=== PATIENT | female | born 1955 | race Caucasian/White ===

== ENCOUNTER → 2022-08-06 | Outpatient (CLI) | payer MEDICARE, BC, SELFPAY ==
--- NOTE | 2022-08-06 14:34 | RAD_ITS ---
INDICATION: INFLAMMATORY POLYARTHROPATHY EXAMINATION/TECHNIQUE: X-RAY - XR Pelvis 1 or 2 Views COMPARISON: None. FINDINGS: PELVIC BONES: No displaced fracture, destructive or sclerotic lesions. Note that overlapping bowel shadows may however obscure fine detail. Sacroiliac joints are unremarkable. No widening of the pubic symphysis. HIPS: Mild degenerative changes of the bilateral hips. No displaced fracture seen in this frontal view. SOFT TISSUES: No soft tissue swelling or gas. RAD/Pelvis 1 or 2 Views IMPRESSION: No evidence of displaced pelvic or hip fracture. 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 Electronically Signed: Guy Crow MD at 18:11 EDT ,
[2022-08-06 18:13] LABS: Absolute Lymphocyte Count 2.94 X10^3/uL (0.83-4.51); Absolute Neutrophil Count 4.9 X10^3/uL (2.0-7.7); Basophil# 0.08 X10^3/uL; Basophil% 0.9 % (0-1); Eosinophil# 0.15 X10^3/uL; Eosinophils% 1.8 % (0-5); Hematocrit 39.3 % (37-47); Hemoglobin 13.5 g/dL (12.0-15.0); Lymphocyte # 2.94 X10^3/ul (0.83-4.51); Lymphocyte % 34.4 % (19-41); Mean Corp Hgb Conc 34.4 g/dL (32-36); Mean Corpuscular Hgb 32.1 pg (27.0-32.0); Mean Corpuscular Volume 93.6 fL (81-99); Monocyte# 0.42 X10^3/uL; Monocyte% 4.9 % (0-10); NRBC Flagged by Analyzer 0 % (0-5); Neutrophil # 4.91 X10^3/uL (2.7-7.7); Neutrophil % 57.5 % (47-70); Platelet Count 222 K/mm3 (150-450); RBC Distribution Width CV 12.3 % (11.6-14.6); White Blood Count 8.5 K/mm3 (4.4-11.0)
[2022-08-06 18:27] LABS: ALB/GLOB Ratio 0.9 RATIO (0.9-2.4); AST(SGOT) 31 U/L (15-37); Alanine Aminotransfer ALT/SGPT 40 U/L (13-56); Albumin, Serum 3.9 g/dL (3.2-5.0); Alkaline Phosphatase 98 U/L (45-117); Anion Gap 7 (5-15); BUN 11 mg/dL (7-18); BUN/Creat Ratio 14.1 RATIO (10-20); Chloride 103 mmol/L (98-107); Creatinine, Serum 0.78 mg/dL (0.55-1.02); EST Glomerular Filtration Rate 79 mL/min (>60); Est Glom Filt Rate - Afr Amer 95 mL/min (>60); Globulin 4.4 g/dL (2.2-4.2); Glucose 94 mg/dL (74-106); Potassium 3.5 mmol/L (3.5-5.1); Protein, Total 8.3 g/dL (6.4-8.2); Rheumatoid Factor < 10.0 IU/mL (<15); Sodium Level 139 mmol/L (136-145)
[2022-08-06 18:28] LABS: Erythrocyte Sedimentation Rate 30 mm/hr (0-30)
[2022-08-07 08:38] LABS: Hepatitis B Surface Antigen Non-Reactive (Nonreactive); Hepatitis C Antibody Non-Reactive (Nonreactive)
[2022-08-08 14:38] LABS: ANTINUCLEAR ANTIBODIES DIRECT Positive (Negative)
[2022-08-10 15:41] LABS: CCP IgG Antibodies 8 units (0-19)
== END | disposition home or self-care (01) ==
PROVIDERS: PCP Internal Medicine; Referring Provider Internal Medicine Rheumatology; Visit Provider Internal Medicine Rheumatology
DX: M06.4 Inflammatory polyarthropathy (principal); M47.892 Other spondylosis, cervical region; R51.9 Headache, unspecified
CPT/HCPCS: 36415; 72170; 80053; 85025; 85652; 86038; 86140; 86200; 86431; 86803; 87340

== ENCOUNTER → 2022-09-05 | Outpatient (CLI) | payer MEDICARE, BC, SELFPAY ==
--- NOTE | 2022-09-05 16:22 | NEURO ---
NCS and/or EMG Patient Report Ordering Doctor: Katie Boss DATE OF SERVICE: 09/05/22 Hodan presents for electrodiagnostic testing of the left upper limb. She reports numbness and tingling in the left hand, primarily the first through third digit. Electrodiagnostic findings: Left median motor nerve demonstrates prolonged distal latency with reduced amplitude and reduced conduction velocity. Normal left ulnar motor response. Normal left ulnar F-wave. Absent left median F wave. Absent median sensory response at the wrist or palm. Normal left radial sensory response. Absent left ulnar sensory response. On needle EMG, all muscles tested showed no evidence of denervation with normal motor unit action potentials. Electrodiagnostic impression: This is an abnormal study in the left upper limb. 1. Electrodiagnostic findings suggestive of left-sided median mononeuropathy. This is consistent with a severe left carpal tunnel syndrome. 2. 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 3. No electrodiagnostic evidence is noted for cubital tunnel syndrome. 4. No electrodiagnostic evidence is noted for cervical radiculopathy.
== END | disposition home or self-care (01) ==
PROVIDERS: PCP Registered Nurse; Referring Provider Internal Medicine Rheumatology; Visit Provider Internal Medicine Rheumatology
DX: M47.892 Other spondylosis, cervical region (principal)

== ENCOUNTER → 2023-03-12 | Outpatient (CLI) | payer MEDICARE, BC, SELFPAY ==
[2023-03-12 17:57] LABS: Absolute Lymphocyte Count 2.61 X10^3/uL (0.83-4.51); Absolute Neutrophil Count 4.4 X10^3/uL (2.0-7.7); Basophil# 0.07 X10^3/uL; Basophil% 0.9 % (0-1); Eosinophil# 0.13 X10^3/uL; Eosinophils% 1.7 % (0-5); Erythrocyte Sedimentation Rate 19 mm/hr (0-30); Hematocrit 39.6 % (37-47); Hemoglobin 13.8 g/dL (12.0-15.0); Lymphocyte # 2.61 X10^3/ul (0.83-4.51); Lymphocyte % 34.3 % (19-41); Mean Corp Hgb Conc 34.8 g/dL (32-36); Mean Corpuscular Hgb 32.5 pg (27.0-32.0); Mean Corpuscular Volume 93.2 fL (81-99); Mean Platelet Vol. 11.3 fl (6.2-12.0); Monocyte# 0.37 X10^3/uL; Monocyte% 4.9 % (0-10); NRBC Flagged by Analyzer 0 % (0-5); Neutrophil # 4.42 X10^3/uL (2.7-7.7); Neutrophil % 57.9 % (47-70); Platelet Count 239 K/mm3 (150-450); RBC Distribution Width CV 12.1 % (11.6-14.6); RBC Distribution Width SD 41.8 fl (35.1-43.9); Red Blood Count 4.25 M/mm3 (4.2-5.4); White Blood Count 7.6 K/mm3 (4.4-11.0)
[2023-03-12 18:30] LABS: AST(SGOT) 30 U/L (15-37); Alanine Aminotransfer ALT/SGPT 37 U/L (13-56); Albumin, Serum 4.2 g/dL (3.2-5.0); Alkaline Phosphatase 105 U/L (45-117); Anion Gap 8 (5-15); BUN 13 mg/dL (7-18); BUN/Creat Ratio 14.4 RATIO (10-20); Calcium,Total 9.8 mg/dL (8.5-10.1); Chloride 103 mmol/L (98-107); EST Glomerular Filtration Rate 66 mL/min (>60); Est Glom Filt Rate - Afr Amer 80 mL/min (>60); Globulin 4.4 g/dL (2.2-4.2); Glucose 100 mg/dL (74-106); Potassium 3.6 mmol/L (3.5-5.1); Protein, Total 8.6 g/dL (6.4-8.2); Rheumatoid Factor < 10.0 IU/mL (<15); Sodium Level 137 mmol/L (136-145)
[2023-03-12 18:50] LABS: Hepatitis B Surface Antibody Non-Reactive; Hepatitis B Surface Antigen Non-Reactive (Nonreactive); Hepatitis C Antibody Non-Reactive (Nonreactive)
[2023-03-14 11:09] LABS: CCP IgG Antibodies 6 units (0-19)
[2023-03-14 13:07] LABS: ANTINUCLEAR ANTIBODIES DIRECT Positive (Negative)
== END | disposition home or self-care (01) ==
LOC: MTLAB 14:36
PROVIDERS: PCP Registered Nurse; Referring Provider Internal Medicine Rheumatology; Visit Provider Internal Medicine Rheumatology
DX: M06.4 Inflammatory polyarthropathy (principal); M47.892 Other spondylosis, cervical region; R51.9 Headache, unspecified
CPT/HCPCS: 36415; 80053; 85025; 85652; 86038; 86140; 86200; 86431; 86706; 86803; 87340

== ENCOUNTER 2023-05-21 06:03 | Day surgery (SDC) | payer MEDICARE, BC, SELFPAY ==
[2023-05-21 06:36] VITALS: BP 151/85; PULSE 74; RESP 16; TEMP 36.6; O2SAT 97; BMI 37.0
[2023-05-21] MEDS: Lactated Ringers 1,000 ML 15 ML IV (06:45)
--- NOTE | 2023-05-21 07:17 | HP.PCM_ITS ---
History and Physical Date of Admission: 05/21/23 [facility] [address] [place] [address] OFFICE VISIT Date of Service: 03/18/23 MR#: [id number] Acct: [id number] Name: CLEOPATRA RHODES Rep #: [id number] : 1955 Provider: Dr. Kirt Sanchez DO Age/Sex: 67/F Location: [facility] Status: Signed Intake Vital Signs 03/18/2309:34 Height 5 ft Weight: 191 lb 6 oz BMI 37.3 Intake Visit Reasons: LEFT HAND Is patient in pain?: Yes Pain scale (1-10): 7 Allergies No Known Allergies Allergy (Unverified 03/18/23 09:34) Medications NK 03/18/23 [History Confirmed 03/18/23] PFSH Surgical History (Updated 03/18/23 @ 09:35 by Mandy Farah) H/O: hysterectomy History of carpal tunnel release Hx of LASIK Social History (Updated 03/18/23 @ 09:35 by Mandy Farah) household members: family Smoking Status: Never smoker alcohol intake: current alcohol intake frequency: holidays/special occasions only HPI LEFT HAND Details: Parts of this documentation were recorded by a scribe, this documentation accurately reflects the service provided and the decisions made by me, Dr. Kirt Sanchez, 03/18/23 0810. CLEOPATRA RHODES is a 67 year old F here today new patient for left hand pain. Patient notes that she has had left hand pain for a few years with it worsening. She states that she has numbness into her thumb, index and middle finger. She notes that she is unable to feel items. Patient is dropping items more frequently. Patient notes that she had an EMG in 2021 which is here for review. Patient denies any injections or physical therapy. She has wrist bracing which she wears some nights which helps temporarily. She is right hand dominant. Patient denies any pain medications. Ortho Exam General General: Yes no acute distress Neurologic: Yes alert and Yes oriented x3 Psychologic: Yes reasonable and appropriate Right Wrist/Hand Skin/Wound: No Swelling and No Ecchymosis Left Wrist/Hand Skin/Wound: Yes CDI, No Swelling, No Ecchymosis, Yes capillary refill normal and No erythema Left Wrist: Yes Durken's Test, Yes Tinel's, Yes Phalen's and Yes Thenar Atrophy; No Hypothenar Atrophy WRIST: numbness into thumb, index and middle finger. tingling into ring finger. mild thenar wasting, 5/5 finger abduction, goos cap refill, full supination and pronation, 80 flexion and 50 extension Head: Normocephalic Atraumatic Chest: symmetrical rise, non-labored breathing, no audible wheeze Abdomen: no guarding, non-rigid Supplemental Info 09/05/2022 EMG left upper extremity:1.? Electrodiagnostic findings suggestive of left-sided median mononeuropathy.? This is consistent with a severe left carpal tunnel syndrome. 2.? 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 3.? No electrodiagnostic evidence is noted for cubital tunnel syndrome. 4.? No electrodiagnostic evidence is noted for cervical radiculopathy. Coding Level of Care Code Off vis,new,level 3 Diagnoses Carpal tunnel syndrome, left G56.02 Assessment and Plan Assessment and Plan (1) Carpal tunnel syndrome, left: Plan Educated the patient about the anatomy of the wrist and hand. Spoke with her about the benefits of a carpal tunnel release due to having severe carpal tunnel syndrome. Explained she might have increased sensativity following the surgery. She has a 1/2 pound lifting restriction for the first 2 weeks post op, and then may increase her lifting to 5 pounds for a week. Spoke with her about the surgery procedure. She should not take NSAIDs 7 days ahead of surgery. Reviewed the pre-operative plans with the patient. Risks and benefits of the procedure were fully explained, including but not limited to infection, neurovascular injury, continued pain, arthritis, stiffness, need for further surgery, re- injury, DVT, PE, general risks of anesthesia, and loss of limb or life, incisional hypersensitivity and pillar pain. The patient understands all the risks and does wish to proceed with written consent. Follow up for 2 week post op appointment or sooner if pain, swelling, numbness or associated symptoms, or concerns develop. All questions answered. Patient in agreement of plan. 03/18/23 1038 <Electronically signed by Kirt Sanchez DO> Date Kirt Robledoigndanyell Signature: Date (if applicable) CC: ~ I have examined the patient and the H&P has been reviewed. There are no clinical changes since date of exam.
[2023-05-21] MEDS: Cefazolin 2 GM in 0.9% Normal Saline 100 ML IV (07:20)
[2023-05-21] MEDS: Lidocaine 1%/Epi 1:100 (30ml) 30 ML VIAL (07:30)
--- NOTE | 2023-05-21 07:49 | OP.PCM_ITS ---
Operative Report Date of Procedure: 05/21/23 Preoperative diagnosis; left carpal tunnel syndrome Postoperative diagnosis; same Procedure: Left open carpal tunnel release Anesthesia: Local with MAC Tourniquet time; 10 minutes 250 mm Hg Complications: None Indication for procedure; This is a 68-year-old female with long-standing sym ptoms consistent with carpal tunnel syndrome the patient did have electrodiagnostic evidence of this and has failed conservative treatment. Risks benefits and alternatives were reviewed including risks of bleeding infection nerve artery tissue damage need for further surgery and continued pain and symptoms, hypersensitivity to scar and Pillar pain. Procedure; The patient was met in the preoperative holding area the operative extremity was identified by both patient and physician and was marked the patient was met by anesthesia and brought back to the operating room and transferred to the operating table in the supine position. Anesthesia was started. A well-padded tourniquet was placed on the operative upper extremity. The patient was prepped and draped in the usual sterile fashion. A timeout was called to ensure the proper patient procedure and extremity were being contemplated. 0.5 percent lidocaine with epinephrine was injected into the incisional area. An Esmarch was used to exsanguinate the extremity. The tourniquet was inflated to 250 mmHg. A midline incision was made with a 15 blade scalpel between the thenar and hypothenar eminence. This was carried down through the skin and subcutaneous tissue. Shola retractors were then used, a deep blade scalpel was used to make a deep incision in the palmar aponeurosis. The shola retractors were then placed deep to this and the transverse carpal ligament was identified a perforation was made with a scalpel and a Littler scissors were used to complete the release of the transverse carpal ligament distally under direct visualization with the tips facing ulnarly until the perivascular fat was reached. Then turning our attention proximally using a tension slide technique the proximal extent of the transverse carpal ligament was released . There was noted to be hourglass configuration to the median nerve and hypertrophy of the transverse carpal ligament without other findings. The wound was thoroughly irrigated and was closed with 4-0 nylon vertical mattress stitches. Dressing was applied in the form of xeroform 4 x 4, web roll and an aimee wrap. Tourniquet was let down there is no intraoperative complications patient tolerated the procedure well and was transferred to the PACU. All counts were correct.
[2023-05-21 07:50] VITALS: BP 126/70; BP 151/85; PULSE 71; RESP 17; TEMP 36.1; O2SAT 95
--- NOTE | 2023-05-21 07:50 | DCINST_ITS ---
Discharge Instructions Diet Discharge Diet: No restrictions Dressing / Incision Call your doctor if you observe: Shortness of breath and Chest pain Additional Dressing/Incision Instructions:: Ice and elevate operative extremity next 72 hours. Keep dressing on clean and dry for 48 hours then may remove and allow warm soapy water to rinse over incision but do not submerge until sutures are out. Then apply bandaid over incision and change daily. encourage finger range of motion. Not lift more than 1/2 pound. Minimize narcotic use only as needed and directed, may use OTC NSAID and Tylenol to supplement/substitute for pain control. Follow Up Care Please Follow Up With: Kirt Sanchez DO When: 2 weeks Test Results: Test results from this visit will be discussed in further detail at your follow- up appointment, if applicable. Discharge Plan Admission Primary Reason for Your Visit: Left carpal tunnel Attending Provider: Kirt Sanchez Primary Care Provider: Roxanne Dominguez NP Discharge Orders/Prescriptions Prescriptions: New oxycodone 5 mg tablet 5 - 10 mg PO Q4H PRN (Reason: pain) 3 Days Qty: 10 0RF Referrals / Follow Up: Roxanne Dominguez NP, [facility] [facility] [Primary Care Provider] - Disposition Disposition (needs filled in before D/C Order can be placed): Home, Self Care
[2023-05-21 07:55] VITALS: BP 119/74; BP 151/85; PULSE 71; RESP 16; O2SAT 98
[2023-05-21 08:00] VITALS: BP 130/85; BP 151/85; PULSE 73; RESP 16; O2SAT 92
[2023-05-21 08:10] VITALS: BP 134/89; BP 151/85; PULSE 67; RESP 16; TEMP 36.9; O2SAT 94
[2023-05-21 08:40] VITALS: BP 132/69; BP 151/85; PULSE 66; RESP 16; TEMP 36.5; O2SAT 95
== END 2023-05-21 09:03 | disposition home or self-care (01) ==
LOC: SDC 06:04 → AC 06:05
PROVIDERS: PCP Registered Nurse; Referring Provider Orthopaedic Surgery; Visit Provider Orthopaedic Surgery
PROC: (CPT 64721; principal; 2023-05-21 07:15)
DX: G56.02 Carpal tunnel syndrome, left upper limb (principal)
CPT/HCPCS: 64721; 01810; J7120